=== PATIENT | female | born 1980 | race Caucasian/White ===

== ENCOUNTER 2018-04-27 13:46 | Inpatient (IN) | payer OTHER ==
[2018-04-27] MEDS ORDERED: NS 0.9% 1000 ML*IV.FLUID IV ONE (14:15)
[2018-04-27 14:48] LABS: ABS Basophils 0 10^3/ul (0-0.2); ABS Eosinophils 0 10^3/ul (0-0.6); ABS Lymphocytes 0.5 10^3/ul (1.0-4.8); ABS Monocytes 0.8 10^3/ul (0-0.8); ABS Neutrophils 16.9 10^3/ul (1.5-7.7); ABS Nucleated RBC 0 10^3/ul; Eosinophil % 0.1 % (0-6); Hematocrit 39 % (35-47); Hemoglobin 13.2 g/dl (12.0-16.0); Lymphocyte % 2.7 % (25-47); Mean Corpuscular HGB Conc 34 g/dl (31-36); Mean Corpuscular Hemoglobin 33 pg (27-31); Mean Corpuscular Volume 97 fL (80-97); Mean Platelet Volume 8.9 fL (7.4-10.4); Nucleated Red Blood Cells % 0; Platelet Count 270 10^3/ul (150-450); Red Blood Count 4.01 10^6/ul (4.00-5.40); Red Cell Distribution Width 13 % (10.5-15); White Blood Count 18.3 10^3/ul (3.5-10.8)
[2018-04-27] MEDS ORDERED: cefTRIAXone(*) 1 GM in NS 0.9% 50 ML* 50 ML IVPB ONE (14:55)
[2018-04-27] MEDS ORDERED: metroNIDAZOLE IV 500 MG/100ML* 500 MG/100 ML BAG IVPB ONE (14:55)
--- NOTE | 2018-04-27 14:56 | RAD ---
HISTORY: fever, post COMPARISONS: None VIEWS: 1: frontal AP view of the chest at 2:42 PM FINDINGS: LINES AND TUBES: None. CARDIOMEDIASTINAL SILHOUETTE: The cardiomediastinal silhouette is normal for portable technique. PLEURA: The costophrenic angles are sharp. No pleural abnormalities are noted. LUNG PARENCHYMA: The lungs are clear. ABDOMEN: The upper abdomen is clear. There is no subphrenic gas. BONES AND SOFT TISSUES: No bone or soft tissue abnormalities are noted. IMPRESSION: NO ACTIVE CARDIOPULMONARY DISEASE.
[2018-04-27 14:59] LABS: INR 0.98 (0.77-1.02)
[2018-04-27 15:05] LABS: EGFR Non-African American 72.1 (>60)
--- NOTE | 2018-04-27 16:21 | ED ---
HPI Febrile Illness - HPI Summary HPI Summary: A 38 y/o female presents to the ED c/o a febrile illness since 13:30 04/27/2018. She is 9 days post giving . She also c/o SEGOVIA, fatigue and abd pain since 04/26/2018. She denies chills, ear pain, sore throat, blurred vision, double vision, neck pain, CP, SOB, back pain, dysuria, hematuria, blood in the stool, constipation, edema, bruising, and rashes. She states that her recent vaginal discharge has been normal and that she's had some slight bleeding due to a first degree tear. Shonda Newport was her jig hand. 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 Onset/Duration: Started Hours Ago Timing: Constant Initial Severity: Moderate Current Severity: Moderate Pain Intensity: 4 Pain Scale Used: 0-10 Numeric Associated Signs and Symptoms: Headache, Other: - fatigue - Allergy/Home Medications Allergies/Adverse Reactions: Allergies Allergy/AdvReac Type Severity Reaction Status Date / Time Sulfa (Sulfonamide Allergy Intermediate Hives Verified 04/27/18 21:33 Antibiotics) gluten Allergy Unknown Verified 04/27/18 21:33 Reaction Details PMH/Surg Hx/FS Hx/Imm Hx Previously Healthy: Yes Psychiatric History: Reports: Hx Anxiety, Hx Depression Infectious Disease History: No Infectious Disease History: Denies: Traveled Outside the [place] in Last 30 Days - Family History Known Family History: Negative: Blood Disorder - Social History Alcohol Use: None Substance Use Type: Reports: None Smoking Status (MU): Never Smoked Tobacco Review of Systems Positive: Fever, Fatigue. Negative: Chills Eyes: Negative - double vision Negative: Blurred Vision ENT: Negative - throat pain Negative: Sore Throat, Ear Ache Negative: Chest Pain Negative: Shortness Of Breath Gastrointestinal: Negative - constipation, blood in stool Positive: Abdominal Pain Negative: dysuria, hematuria Negative: Myalgia - back pain, Edema Negative: Rash, Bruising Positive: Headache All Other Systems Reviewed And Are Negative: No Physical Exam - Summary Physical Exam Summary: Appearance: Alert, conversive, nontoxic appearing Skin: Warm, dry, no mottling, no rashes, no contusions HEENT: EOMI, PERRL, moist mucous membranes Neck: No masses on the neck, supple Respiratory: Clear to auscultation, breath sounds present, no rales, no rhonchi , no wheezes Cardiovascular: tachycardic, regular rhythm, pulses are symmetrical in both lower and upper extremities Abdomen: Soft, non-tender Bowel Sounds: Present Musculoskeletal: No CVA tenderness, no obvious deformity, moving all extremities in a grossly normal manner Neurological: A&Ox3, CN II-XII Intact, moving all extremities symmetrically Psychiatric: Normal affect and mood Triage Information Reviewed: Yes Vital Signs On Initial Exam: Initial Vitals Temp Pulse Resp BP Pulse Ox 101.6 F 131 20 110/61 95 04/27/18 13:47 04/27/18 13:47 04/27/18 13:47 04/27/18 13:47 04/27/18 13:47 Vital Signs Reviewed: Yes Diagnostics - Vital Signs Vital Signs Temp Pulse Resp BP Pulse Ox 04/27/18 16:00 110 25 99 04/27/18 15:41 120 14 111/63 99 04/27/18 15:10 101 14 104/64 98 04/27/18 15:00 116 14 97 04/27/18 14:40 122 16 132/73 97 04/27/18 14:11 125 95 04/27/18 14:10 128 104/65 95 04/27/18 13:47 101.6 F 131 20 110/61 95 - Laboratory Lab Results: Lab Results 04/27/18 04/27/18 04/27/18 Range/Units 14:26 14:26 14:26 WBC 18.3 H (3.5-10.8) 10^3/ul RBC 4.01 (4.00-5.40) 10^6/ul Hgb 13.2 (12.0-16.0) g/dl Hct 39 (35-47) % MCV 97 (80-97) fL MCH 33 H (27-31) pg MCHC 34 (31-36) g/dl RDW 13 (10.5-15) % Plt Count 270 (150-450) 10^3/ul MPV 8.9 (7.4-10.4) fL Neut % (Auto) 92.6 H (38-83) % Lymph % (Auto) 2.7 L (25-47) % Banks % (Auto) 4.5 (0-7) % Eos % (Auto) 0.1 (0-6) % Baso % (Auto) 0.1 (0-2) % Absolute Neuts (auto) 16.9 H (1.5-7.7) 10^3/ul Absolute Lymphs (auto) 0.5 L (1.0-4.8) 10^3/ul Absolute Monos (auto) 0.8 (0-0.8) 10^3/ul Absolute Eos (auto) 0 (0-0.6) 10^3/ul Absolute Basos (auto) 0 (0-0.2) 10^3/ul Absolute Nucleated RBC 0 10^3/ul Nucleated RBC % 0 ESR Pending INR (Anticoag Therapy) 0.98 (0.77-1.02) APTT 32.7 (26.0-36.3) seconds Sodium 137 (135-145) mmol/L Potassium 3.6 (3.5-5.0) mmol/L Chloride 104 (101-111) mmol/L Carbon Dioxide 22 (22-32) mmol/L Anion Gap 11 (2-11) mmol/L BUN 15 (6-24) mg/dL Creatinine 0.87 (0.51-0.95) mg/dL Est GFR ( Amer) 87.3 (>60) Est GFR (Non-Af Amer) 72.1 (>60) BUN/Creatinine Ratio 17.2 (8-20) Glucose 114 H (70-100) mg/dL Lactic Acid (0.5-2.0) mmol/L Calcium 8.7 (8.6-10.3) mg/dL Total Bilirubin 0.80 (0.2-1.0) mg/dL AST 13 (13-39) U/L ALT 18 (7-52) U/L Alkaline Phosphatase 126 H (34-104) U/L Troponin I 0.00 (<0.04) ng/mL C-Reactive Protein 19.90 H (<8.01) mg/L Total Protein 6.9 (6.4-8.9) g/dL Albumin 3.8 (3.2-5.2) g/dL Globulin 3.1 (2-4) g/dL Albumin/Globulin Ratio 1.2 (1-3) Procalcitonin (<0.6) ng/mL Influenza A (Rapid) (Negative) Influenza B (Rapid) (Negative) Group A Strep Rapid (Negative) Blood Type Antibody Screen 04/27/18 04/27/18 04/27/18 Range/Units 14:26 14:26 14:26 WBC (3.5-10.8) 10^3/ul RBC (4.00-5.40) 10^6/ul Hgb (12.0-16.0) g/dl Hct (35-47) % MCV (80-97) fL MCH (27-31) pg MCHC (31-36) g/dl RDW (10.5-15) % Plt Count (150-450) 10^3/ul MPV (7.4-10.4) fL Neut % (Auto) (38-83) % Lymph % (Auto) (25-47) % Banks % (Auto) (0-7) % Eos % (Auto) (0-6) % Baso % (Auto) (0-2) % Absolute Neuts (auto) (1.5-7.7) 10^3/ul Absolute Lymphs (auto) (1.0-4.8) 10^3/ul Absolute Monos (auto) (0-0.8) 10^3/ul Absolute Eos (auto) (0-0.6) 10^3/ul Absolute Basos (auto) (0-0.2) 10^3/ul Absolute Nucleated RBC 10^3/ul Nucleated RBC % ESR INR (Anticoag Therapy) (0.77-1.02) APTT (26.0-36.3) seconds Sodium (135-145) mmol/L Potassium (3.5-5.0) mmol/L Chloride (101-111) mmol/L Carbon Dioxide (22-32) mmol/L Anion Gap (2-11) mmol/L BUN (6-24) mg/dL Creatinine (0.51-0.95) mg/dL Est GFR ( Amer) (>60) Est GFR (Non-Af Amer) (>60) BUN/Creatinine Ratio (8-20) Glucose (70-100) mg/dL Lactic Acid 0.7 (0.5-2.0) mmol/L Calcium (8.6-10.3) mg/dL Total Bilirubin (0.2-1.0) mg/dL AST (13-39) U/L ALT (7-52) U/L Alkaline Phosphatase (34-104) U/L Troponin I (<0.04) ng/mL C-Reactive Protein (<8.01) mg/L Total Protein (6.4-8.9) g/dL Albumin (3.2-5.2) g/dL Globulin (2-4) g/dL Albumin/Globulin Ratio (1-3) Procalcitonin 0.1 (<0.6) ng/mL Influenza A (Rapid) (Negative) Influenza B (Rapid) (Negative) Group A Strep Rapid (Negative) Blood Type O Positive Antibody Screen Negative 04/27/18 04/27/18 Range/Units 14:48 14:56 WBC (3.5-10.8) 10^3/ul RBC (4.00-5.40) 10^6/ul Hgb (12.0-16.0) g/dl Hct (35-47) % MCV (80-97) fL MCH (27-31) pg MCHC (31-36) g/dl RDW (10.5-15) % Plt Count (150-450) 10^3/ul MPV (7.4-10.4) fL Neut % (Auto) (38-83) % Lymph % (Auto) (25-47) % Banks % (Auto) (0-7) % Eos % (Auto) (0-6) % Baso % (Auto) (0-2) % Absolute Neuts (auto) (1.5-7.7) 10^3/ul Absolute Lymphs (auto) (1.0-4.8) 10^3/ul Absolute Monos (auto) (0-0.8) 10^3/ul Absolute Eos (auto) (0-0.6) 10^3/ul Absolute Basos (auto) (0-0.2) 10^3/ul Absolute Nucleated RBC 10^3/ul Nucleated RBC % ESR INR (Anticoag Therapy) (0.77-1.02) APTT (26.0-36.3) seconds Sodium (135-145) mmol/L Potassium (3.5-5.0) mmol/L Chloride (101-111) mmol/L Carbon Dioxide (22-32) mmol/L Anion Gap (2-11) mmol/L BUN (6-24) mg/dL Creatinine (0.51-0.95) mg/dL Est GFR ( Amer) (>60) Est GFR (Non-Af Amer) (>60) BUN/Creatinine Ratio (8-20) Glucose (70-100) mg/dL Lactic Acid (0.5-2.0) mmol/L Calcium (8.6-10.3) mg/dL Total Bilirubin (0.2-1.0) mg/dL AST (13-39) U/L ALT (7-52) U/L Alkaline Phosphatase (34-104) U/L Troponin I (<0.04) ng/mL C-Reactive Protein (<8.01) mg/L Total Protein (6.4-8.9) g/dL Albumin (3.2-5.2) g/dL Globulin (2-4) g/dL Albumin/Globulin Ratio (1-3) Procalcitonin (<0.6) ng/mL Influenza A (Rapid) Negative (Negative) Influenza B (Rapid) Negative (Negative) Group A Strep Rapid Negative (Negative) Blood Type Antibody Screen Result Diagrams: 04/28/18 07:53 04/27/18 14:26 Lab Statement: Any lab studies that have been ordered have been reviewed, and results considered in the medical decision making process. - Radiology CXR Radiology Interpretation Completed By: Radiologist - No active cardiopulmonary disease is noted. This report has been reviewed by the ED physician. - Ultrasound No standard instances Ultrasound Interpretation Completed By: Radiologist - Pelvis: #. Distended uterine cavity with avascular debris and fluid fluid level. Consider endometritis and potentially retained products of conception. Course/Dx - Course Course Of Treatment: A 38 y/o female presents to the ED c/o a febrile illness since 13:30 04/27/2018. Her CXR was negative but her pelvis US showed endometritis. Dx: endometritis, sepsis. Pt will be admitted to Dr. Savage. - Diagnoses Provider Diagnoses: Endometritis, Sepsis - Provider Notifications Discussed Care Of Patient With: Jono Cash Time Discussed With Above Provider: 15:40 - also spoke at 16:45 about pelvis US Instructed by Provider To: MD Will See In ED - after US Discharge - Sign-Out/Discharge Documenting (check all that apply): Patient Departure All imaging exams completed and their final reports reviewed: Yes - Discharge Plan Condition: Stable Disposition: ADMITTED TO [facility] - Billing Disposition and Condition Condition: STABLE Disposition: Admitted to [facility] - Attestation Statements Document Initiated by Scribe: Yes Documenting Scribe: Kiel Veliz Provider For Whom Scribe is Documenting (Include Credential): Eva Munguia MD Scribe Attestation: IKiel, scribed for Eva Munguia MD on 04/29/18 at 0904. Scribe Documentation Reviewed: Yes Provider Attestation: The documentation as recorded by the Kiel mckeon accurately reflects the service I personally performed and the decisions made by me, Eva Munguia MD Consult Consult: 15:45 - Dr. Savage will be admitting the patient after Dr. Cash sees the patient.
[2018-04-27 16:23] LABS: Urine Red Blood Cell Absent (Absent); Urine White Blood Cell 3+(>20/hpf) (Absent)
--- NOTE | 2018-04-27 16:27 | RAD ---
Indication: Sepsis 9 days status post vaginal delivery. Comparison: No relevant prior exams available on the [facility] for comparison. Technique: Transabdominal pelvic ultrasound. Report: 12.7 x 8.5 x 11.0 cm anteverted uterus. Distended uterine cavity with fluid fluid level. No visualized intrinsic vascularity at the endometrium or endometrial cavity. 3.1 x 1.9 x 1.8 cm subserosal fibroid noted at the anterior margin of the uterine body. Negative for free pelvic fluid. 2.6 x 2.0 x 1.5 cm RIGHT ovary and 2.2 x 1.3 x 1.4 cm LEFT ovary. No suspicious ovarian abnormality. No visualized extra ovarian adnexal region lesions evident. IMPRESSION: #. Distended uterine cavity with avascular debris and fluid fluid level. Consider endometritis and potentially retained products of conception.
[2018-04-27 16:43] LABS: Urine Appearance Clear; Urine Blood 3+ (Negative); Urine Color Yellow; Urine Ketones Negative (Negative); Urine Protein Negative (Negative); Urine Specific Gravity 1.004 (1.010-1.030); Urine Urobilinogen Negative (Negative)
[2018-04-27] MEDS ORDERED: Clindamycin 900 MG/D5W BAG(*) 900 MG/50 ML BAG IVPB ONE (16:52)
[2018-04-27] MEDS ORDERED: Gentamicin ADULT (*) 40 MG/ML VIAL IVPB ONE (16:52)
[2018-04-27] MEDS ORDERED: Acetaminophen TAB* 325 MG PO ONE (17:25)
[2018-04-27] MEDS ORDERED: Gentamicin ADULT (*) 90 MG in NS 0.9% 100 ML* 100 ML IVPB ONE (18:00)
[2018-04-27] MEDS ORDERED: Clindamycin 900 MG/D5W BAG(*) 900 MG/50 ML BAG IVPB SCH (18:00)
[2018-04-27] MEDS ORDERED: Gentamicin ADULT (*) 400 MG in NS 0.9% 100 ML* 100 ML IVPB SCH (18:00)
--- NOTE | 2018-04-27 18:02 | HP ---
H&P (Free Text) History and Physical: H&P HPI: 38yo PPD#9 s/p uncomplicated with 1st degree lac. No issues until yesterday when she started to have a headache and felt a little ill. This AM, she had chills and then a fever of 101 around 1200. No N/V, no D/C, no significant abd pain. , but no breast complaints. ROS: Gen: fever, chills, malaise CVS: neg Resp: neg GI: neg : neg, normal lochia MS: neg Neuro: neg PMH: none PSH: none All: Sulfa, gluten Physical exam VS: T101.6, P118, 132/80, R19 Chest CTA CVS RRR, tachy Abd soft, extremely mild suprapubic tenderness with deep palpation, no rebound/ guarding Ext: min edema Laboratory Tests 04/27/18 04/27/18 04/27/18 14:26 14:26 14:26 WBC 18.3 H RBC 4.01 Hgb 13.2 Hct 39 MCV 97 MCH 33 H MCHC 34 RDW 13 Plt Count 270 MPV 8.9 Neut % (Auto) 92.6 H Lymph % (Auto) 2.7 L Gray % (Auto) 4.5 Eos % (Auto) 0.1 Baso % (Auto) 0.1 Absolute Neuts (auto) 16.9 H Absolute Lymphs (auto) 0.5 L Absolute Monos (auto) 0.8 Absolute Eos (auto) 0 Absolute Basos (auto) 0 Absolute Nucleated RBC 0 Nucleated RBC % 0 ESR 36 H INR (Anticoag Therapy) 0.98 APTT 32.7 Sodium 137 Potassium 3.6 Chloride 104 Carbon Dioxide 22 Anion Gap 11 BUN 15 Creatinine 0.87 Est GFR ( Amer) 87.3 Est GFR (Non-Af Amer) 72.1 BUN/Creatinine Ratio 17.2 Glucose 114 H Lactic Acid Calcium 8.7 Total Bilirubin 0.80 AST 13 ALT 18 Alkaline Phosphatase 126 H Troponin I 0.00 C-Reactive Protein 19.90 H Total Protein 6.9 Albumin 3.8 Globulin 3.1 Albumin/Globulin Ratio 1.2 Procalcitonin Urine Color Urine Appearance Urine pH Ur Specific [place] Urine Protein Urine Ketones Urine Blood Urine Nitrate Urine Bilirubin Urine Urobilinogen Ur Leukocyte Esterase Urine WBC (Auto) Urine RBC (Auto) Ur Squamous Epith Cells Urine Bacteria Urine Glucose Urine Ascorbic Acid Influenza A (Rapid) Influenza B (Rapid) Group A Strep Rapid Blood Type Antibody Screen 04/27/18 04/27/18 04/27/18 14:26 14:26 14:26 WBC RBC Hgb Hct MCV MCH MCHC RDW Plt Count MPV Neut % (Auto) Lymph % (Auto) Gray % (Auto) Eos % (Auto) Baso % (Auto) Absolute Neuts (auto) Absolute Lymphs (auto) Absolute Monos (auto) Absolute Eos (auto) Absolute Basos (auto) Absolute Nucleated RBC Nucleated RBC % ESR INR (Anticoag Therapy) APTT Sodium Potassium Chloride Carbon Dioxide Anion Gap BUN Creatinine Est GFR ( Amer) Est GFR (Non-Af Amer) BUN/Creatinine Ratio Glucose Lactic Acid 0.7 Calcium Total Bilirubin AST ALT Alkaline Phosphatase Troponin I C-Reactive Protein Total Protein Albumin Globulin Albumin/Globulin Ratio Procalcitonin 0.1 Urine Color Urine Appearance Urine pH Ur Specific [place] Urine Protein Urine Ketones Urine Blood Urine Nitrate Urine Bilirubin Urine Urobilinogen Ur Leukocyte Esterase Urine WBC (Auto) Urine RBC (Auto) Ur Squamous Epith Cells Urine Bacteria Urine Glucose Urine Ascorbic Acid Influenza A (Rapid) Influenza B (Rapid) Group A Strep Rapid Blood Type O Positive Antibody Screen Negative 04/27/18 04/27/18 04/27/18 14:48 14:56 15:52 WBC RBC Hgb Hct MCV MCH MCHC RDW Plt Count MPV Neut % (Auto) Lymph % (Auto) Gray % (Auto) Eos % (Auto) Baso % (Auto) Absolute Neuts (auto) Absolute Lymphs (auto) Absolute Monos (auto) Absolute Eos (auto) Absolute Basos (auto) Absolute Nucleated RBC Nucleated RBC % ESR INR (Anticoag Therapy) APTT Sodium Potassium Chloride Carbon Dioxide Anion Gap BUN Creatinine Est GFR ( Amer) Est GFR (Non-Af Amer) BUN/Creatinine Ratio Glucose Lactic Acid Calcium Total Bilirubin AST ALT Alkaline Phosphatase Troponin I C-Reactive Protein Total Protein Albumin Globulin Albumin/Globulin Ratio Procalcitonin Urine Color Yellow Urine Appearance Clear Urine pH 6.0 Ur Specific [place] 1.004 L Urine Protein Negative Urine Ketones Negative Urine Blood 3+ A Urine Nitrate Negative Urine Bilirubin Negative Urine Urobilinogen Negative Ur Leukocyte Esterase 3+ A Urine WBC (Auto) 3+(>20/hpf) A Urine RBC (Auto) Absent Ur Squamous Epith Cells Present A Urine Bacteria 1+ A Urine Glucose Negative Urine Ascorbic Acid Not Reportable Influenza A (Rapid) Negative Influenza B (Rapid) Negative Group A Strep Rapid Negative Blood Type Antibody Screen U/S: moderate amt of fluid with debris in endometrial cavity. No clear retained tissue Normal adnexa Impression: fever, likely endometritis despite minimal uterine tenderness Urine with WBC but this is likely secondary to uterine infection Plan: Admit for IV abx Clindamycin Q8hr Gentamicin Q24hrs Continue IV abx until 24-48 hrs afebrile and clinically improved. All questions answered.
[2018-04-27] MEDS: Ibuprofen TAB* 600 MG PO PRN (20:47)
[2018-04-28] MEDS: Clindamycin 900 MG/D5W BAG(*) 900 MG/50 ML BAG IVPB SCH ×3 (02:10→18:14)
[2018-04-28] MEDS: Acetaminophen TAB* 325 MG PO PRN ×3 (04:14→18:40)
[2018-04-28 07:57] LABS: ABS Basophils 0 10^3/ul (0-0.2); ABS Eosinophils 0 10^3/ul (0-0.6); ABS Lymphocytes 0.9 10^3/ul (1.0-4.8); ABS Monocytes 0.5 10^3/ul (0-0.8); ABS Neutrophils 7.4 10^3/ul (1.5-7.7); ABS Nucleated RBC 0 10^3/ul; Eosinophil % 0.1 % (0-6); Hematocrit 33 % (35-47); Hemoglobin 11.2 g/dl (12.0-16.0); Lymphocyte % 10.3 % (25-47); Mean Corpuscular HGB Conc 34 g/dl (31-36); Mean Corpuscular Hemoglobin 33 pg (27-31); Mean Corpuscular Volume 97 fL (80-97); Mean Platelet Volume 8.7 fL (7.4-10.4); Nucleated Red Blood Cells % 0; Platelet Count 203 10^3/ul (150-450); Red Blood Count 3.36 10^6/ul (4.00-5.40); Red Cell Distribution Width 13 % (10.5-15); White Blood Count 8.8 10^3/ul (3.5-10.8)
--- NOTE | 2018-04-28 10:18 | PN ---
Progress Note - Progress Note Date of Service: 04/28/18 SOAP: Subjective: []pt feeling better . Objective: []bvitals stable now afebrile uterus nontender/ at pubis extremities nontender wbs 8.8 down from 18 Assessment: []resolving endometritis Plan: []iv antibiotic for 24 -48 afebrile. plan reviewed with patient
[2018-04-28] MEDS: Gentamicin ADULT (*) 400 MG in NS 0.9% 100 ML* 100 ML IVPB SCH (20:37)
[2018-04-29] MEDS: Clindamycin 900 MG/D5W BAG(*) 900 MG/50 ML BAG IVPB SCH ×3 (01:46→20:29)
--- NOTE | 2018-04-29 08:12 | PN ---
Progress Note - Progress Note Date of Service: 04/29/18 SOAP: Subjective: []pt feels better today than yesterday Objective:tmax 103 at 1800 yesterday around time of clindamycin infusion , now afebrile []pt has no tenderness or abnormal signs to begin with Assessment: []suspected endometritis . Plan: []no change in plan 24-48 afebrile prior to discontinuing antibiotics. oral antibiotic not necessary but may be considered.
[2018-04-29] MEDS ORDERED: Prenatal Vitamin TAB PO SCH (09:00)
[2018-04-29 12:36] LABS: ABS Basophils 0 10^3/ul (0-0.2); ABS Eosinophils 0.1 10^3/ul (0-0.6); ABS Lymphocytes 1.8 10^3/ul (1.0-4.8); ABS Monocytes 0.7 10^3/ul (0-0.8); ABS Neutrophils 4.6 10^3/ul (1.5-7.7); ABS Nucleated RBC 0 10^3/ul; Eosinophil % 1.2 % (0-6); Hematocrit 34 % (35-47); Hemoglobin 11.5 g/dl (12.0-16.0); Lymphocyte % 24.8 % (25-47); Mean Corpuscular HGB Conc 34 g/dl (31-36); Mean Corpuscular Hemoglobin 33 pg (27-31); Mean Corpuscular Volume 98 fL (80-97); Mean Platelet Volume 9.3 fL (7.4-10.4); Nucleated Red Blood Cells % 0; Platelet Count 230 10^3/ul (150-450); Red Blood Count 3.45 10^6/ul (4.00-5.40); Red Cell Distribution Width 13 % (10.5-15); White Blood Count 7.3 10^3/ul (3.5-10.8)
[2018-04-29] MEDS ORDERED: Gentamicin Trough Level 1 NOTE MISC FOLLOW UP ONE (20:00)
[2018-04-29] MEDS: Gentamicin ADULT (*) 400 MG in NS 0.9% 100 ML* 100 ML IVPB SCH (21:48)
[2018-04-30] MEDS: Clindamycin 900 MG/D5W BAG(*) 900 MG/50 ML BAG IVPB SCH (02:06)
[2018-04-30] MEDS: Ibuprofen TAB* 600 MG PO PRN (05:31)
[2018-04-30 08:07] VITALS: BP 126/62
--- NOTE | 2018-04-30 09:13 | PN ---
Progress Note - Progress Note Date of Service: 04/30/18 SOAP: Subjective: [Pt feeling much better requesting to go home if possible] Objective: [Afebrile >24 VSS] Const: alert oriented X 3 abdomen: soft nontender Uterus: nontender Perineum: minimal bleeding Assessment: [Pt 38 yo endometritis post a febrile greater than 24 hour] Plan: [Pt 38 yo for discharge to home after sufficient treatment for endometritis. Pt to f/u with primary OB for routine care. Pt will not need ongoing abx and discharge instructions were reviewed with patient. Pt verbalized understanding and all questions were answered to pt satisfaction.]
== END 2018-04-30 10:47 | disposition home or self-care (01) | DRG 561 ==
LOC: ED 13:46 → SSU 17:34 → MCHPEDS 19:12
PROVIDERS: ADMIT Obstetrics & Gynecology; ATTEND Obstetrics & Gynecology
DX: O86.12 Endometritis following delivery (principal); O86.4 Pyrexia of unknown origin following delivery; Z88.2 Allergy status to sulfonamides; Z91.018 Allergy to other foods
CPT/HCPCS: 36415; 71045; 76856; 80053; 80170; 81003; 81015; 83605; 84145; 84484; 85025; 85610; 85652; 85730; 86140; 86850; 86900; 86901; 87040; 87086; 87651; 99284; A9270-GY; J0696; J1580; J3490